=== PATIENT | male | born 1995 ===

== ENCOUNTER 2017-08-20 16:38 | Emergency (ER) | payer BC ==
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
[2017-08-20] MEDS ORDERED: IBUP200C71 PO (16:50)
[2017-08-20] MEDS ORDERED: NS(*) 0.9% 1000 ML BAG 1,000 ML IV ONE (16:51)
[2017-08-20] MEDS ORDERED: ONDANSETRON 4 MG/2 ML VIAL IVP ONE (16:55)
[2017-08-20] MEDS ORDERED: MORPHINE 4 MG/ML SYR IVP ONE ×2 (16:55→20:35)
[2017-08-20 17:19] LABS: PLATELET COUNT, AUTOMATED 223 K/uL (150-450)
[2017-08-20] MEDS ORDERED: IOPAMIDOL 76% 100 ML INFUS BTL 100 ML ONE (17:43)
[2017-08-20] MEDS ORDERED: NS 0.9% 50 ML VIAL 100 ML ONE (17:43)
[2017-08-20 17:54] LABS: INR 1.13
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
== END 2017-08-20 20:40 ==
LOC: ER 16:43
DX: S22.062A Unstable burst fracture of T7-T8 vertebra, initial encounter for closed fracture (principal); S22.061A Stable burst fracture of T7-T8 vertebra, initial encounter for closed fracture; S22.071A Stable burst fracture of T9-T10 vertebra, initial encounter for closed fracture; V86.52XA Driver of snowmobile injured in nontraffic accident, initial encounter; Y93.29 Activity, other involving ice and snow
CPT/HCPCS: 71260; 72125; 74177; 81001; 82150; 83605; 83690; 85025; 85610; 85730; 99285; J2270; J2405; J7030; J7050; Q9967; 82040; 82247; 82310; 82374; 82435; 82565; 82947; 84075; 84132; 84155; 84295; 84450; 84460; 84520

== ENCOUNTER → 2017-08-20 | Outpatient (CLI) | payer BC ==
[~2017-08-20] MED LIST: IBUP200C71 PO
== END ==
LOC: AMB 20:32
PROVIDERS: ATTEND Nurse Practitioner
DX: S22.029A Unspecified fracture of second thoracic vertebra, initial encounter for closed fracture (principal); S22.069A Unspecified fracture of T7-T8 vertebra, initial encounter for closed fracture; S22.079A Unspecified fracture of T9-T10 vertebra, initial encounter for closed fracture; V86.52XA Driver of snowmobile injured in nontraffic accident, initial encounter; Y93.29 Activity, other involving ice and snow
CPT/HCPCS: A0425; A0426